=== PATIENT | female | born 1995 | race African-American/Black ===

== ENCOUNTER 2017-10-12 13:45 | Emergency (ER) | payer BC ==
[2017-10-12 15:29] VITALS: BP 109/66
--- NOTE | 2017-10-12 15:51 | UC ---
General HPI - HPI Summary HPI Summary: Pt presents to with 2 complaints: 1) Pt with rash on arms and legs. Pt states has been present x 6 weeks. Initially thought was eczema - pt states used OTC lotion / cream without improvement. Pt states then started using OTC treatment for ring worm - states has been inconsistent with use and not sure if improving. States does itch intermittently. Has not used benadryl cream or steroid cream. 2) Pt states has vaginal discharge x 1 week. Mild LLQ Pain which has happened previously when has BV. No odor. thin white. mild itching. last intercourse June- normal no OTC treatment no n/v/d. no fver, chills, rash. no analgesia. Pt's medications reviewed this visit - History of Current Complaint Chief Complaint: [place] Stated Complaint: PELVIC PAIN, SKIN COMPLAINT Time Seen by Provider: 10/12/17 15:22 Hx Last Menstrual Period: ended 10/05/17 Onset/Duration: Gradual Onset Timing: Constant Onset Severity: Mild Current Severity: Mild Pain Intensity: 1 - Allergy/Home Medications Allergies/Adverse Reactions: Allergies Allergy/AdvReac Type Severity Reaction Status Date / Time No Known Allergies Allergy Verified 10/12/17 15:22 PMH/Surg Hx/FS Hx/Imm Hx Previously Healthy: Yes - Surgical History Surgical History: None - Family History Known Family History: Positive: None - Social History Occupation: Student Lives: Dormitory/Roommates Alcohol Use: Occasionally Substance Use Type: None Smoking Status (MU): Never Smoked Tobacco Review of Systems Constitutional: Negative Respiratory: Negative Cardiovascular: Negative Gastrointestinal: Abdominal Pain - mild LLQ pain Genitourinary: Vaginal/Penile Itching, Vaginal/Penile Discharge Motor: Negative All Other Systems Reviewed And Are Negative: Yes Physical Exam Triage Information Reviewed: Yes Appearance: Well-Appearing, No Pain Distress, Well-Nourished Vital Signs: Initial Vital Signs Temp 98 F 10/12/17 15:23 Pulse 69 10/12/17 15:23 Resp 16 10/12/17 15:23 BP 109/66 10/12/17 15:23 Pulse Ox 100 10/12/17 15:23 Vital Signs Reviewed: Yes Eye Exam: Normal Eyes: Positive: Conjunctiva Clear ENT Exam: Normal ENT: Positive: Normal ENT inspection, Hearing grossly normal Dental Exam: Normal Neck exam: Normal Neck: Positive: Supple, Nontender, No Lymphadenopathy Respiratory Exam: Normal Respiratory: Positive: Chest non-tender, Lungs clear, Normal breath sounds, No respiratory distress, No accessory muscle use Cardiovascular Exam: Normal Cardiovascular: Positive: RRR, No Murmur Abdominal Exam: Normal Abdomen Description: Positive: Nontender - soft +BS no guarding no rebound, No Organomegaly, Soft, Other: - no external lesions Pt with thin, white dicharge in vault. no odor. no bleeding os closed no discomfort bimanual Bowel Sounds: Positive: Present Musculoskeletal Exam: Normal Musculoskeletal: Positive: Strength Intact Neurological Exam: Normal Neurological: Positive: Alert Psychological Exam: Normal Skin: Positive: Other - pt with 3 patches dry, scale like skin in circular pattern, mild raised left medial upper arm Pt with 4cm circular scale patch, mild erythema right posterior thigh, no drainage, non tender Course/Dx - Course Course Of Treatment: Pt with rash c/w tinea - will give RX - pt to apply x 2 weeks. If not improved, referral to dermatology provided. Pt with thin, white discharge Otherwise nonconcerning exam. Will treat BV = d/w pt at length alcohol precaution. ot aware other cultures pending. pt in agreement with plan. return precautions discussed - Differential Dx - Multi-Symptom Provider Diagnoses: vaginitis. tinea corporis Discharge - Discharge Plan Condition: Stable Disposition: HOME Prescriptions: Clotrimazole 1% CREAM* [Clotrimazole 1%*] 1 applic TOPICAL BID #1 tube metroNIDAZOLE [Flagyl] 500 mg PO BID #14 tablet Patient Education Materials: Bacterial Vaginosis (ED), Tinea Corporis (ED), Vaginitis (ED) Referrals: [facility] [Outside] Akshat Rooney MD [Medical Doctor] - Non Staff,Doctor [Primary Care Provider] - Additional Instructions: 1) For your rash - apply ointment to the skin 2 times a day for 2 weeks. You have been given contact information for a dinking machine operator (early intervention specialist) If your symptoms persist or worsen, it is recommend you schedule an appointment with this specialist. 2) you have been given a prescription to treat bacterial vaginosis (BV) It is VERY Important you do not drink alcohol for a minimum of 36 hours before starting this medication for for 36 upon completion of this medication. Your vaginal specimens have been sent for additional testing. If you need a different treatment,you will receive a call from a care contact center team lead. This may take 2-3 days. Contact your doctor, student health or return here with questions or concerns
--- NOTE | 2017-10-14 10:02 | UC ---
- Progress Note Progress Note: Please add diflucan one dose for pos zahraa on labs. 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
== END 2017-10-12 16:11 | disposition home or self-care (01) ==
LOC: UCCORT 13:45
DX: N76.0 Acute vaginitis (principal); B35.4 Tinea corporis
CPT/HCPCS: 81003; 87086; 87480; 87491; 87510; 87591; 87661; 99202; G0463